=== PATIENT | female | born 1985 | race Caucasian/White ===

== ENCOUNTER 2024-02-25 18:15 | Emergency (ER) | payer OTHER ==
[~2024-02-25] VITALS: Ht 162.6 cm; Wt 95.3 kg
[~2024-02-25 18:15] MED LIST: LEVO50TA PO
[2024-02-25] MEDS: KETOROLAC TROMETHAMINE 30 MG INJ IVP ONE (19:00)
[2024-02-25] MEDS ORDERED: KETOROLAC TROMETHAMINE 30 MG INJ ONE (19:08)
[2024-02-25 19:12] LABS: BASOPHILS # (AUTO) 0.1 K/UL (0.0-0.2); EOSINOPHILS # (AUTO) 0.2 K/uL (0.0-0.7); EOSINOPHILS % (AUTO) 2.8 % (0.0-7.0); HEMATOCRIT 42.3 % (31.2-41.9); HEMOGLOBIN 14.2 g/dL (10.9-14.3); LYMPHOCYTES % (AUTO) 12.3 % (20.5-51.5); MEAN CORPUSCULAR HEMOGLOBIN 28.7 uug (24.7-32.8); MEAN CORPUSCULAR HGB CONC 34 g/dL (32.3-35.6); MEAN CORPUSCULAR VOLUME 85.2 fL (75.5-95.3); MONOCYTES # (AUTO) 0.5 K/uL (0.1-1.30); MONOCYTES % (AUTO) 5.9 % (0.0-11.0); NEUTROPHILS # (AUTO) 6.1 K/uL (1.8-8.9); PLATELET COUNT (AUTO) 308 K/uL (179-408); RED BLOOD CELL COUNT(AUTO) 4.96 MIL/uL (3.63-4.92); RED CELL DISTRIBUTION WIDTH 13.4 % (12.3-17.7); WHITE BLOOD COUNT (AUTO) 7.8 K/uL (3.8-11.8)
[2024-02-25 19:14] LABS: *BILIRUBIN,URIN NEGATIVE (NEGATIVE); *BLOOD, URINE NEGATIVE (NEGATIVE); *CLARITY,URINE CLEAR (CLEAR); *COLOR,URINE YELLOW (YELLOW); *KETONES,URINE NEGATIVE (NEGATIVE); *PROTEIN,URINE NEGATIVE (NEGATIVE); *UROBILINOGEN,URINE 0.2 E.U./dl (NORMAL); LEUKOCYTE ESTERASE ,URINE NEGATIVE (NEGATIVE); NITRITE, URINE NEGATIVE (NEGATIVE); PH,URINE 8.5 (5.0-8.0); UGLUCOSE NEGATIVE (NEGATIVE)
[2024-02-25 19:18] LABS: *URINE HCG, QUAL NEGATIVE (NEGATIVE); DIFFERENTIAL COMMENT 1
[2024-02-25 19:27] LABS: ALANINE AMINOTRANSFERASE 18 U/L (14-59); ALBUMIN 4.2 g/dL (3.4-5.0); ALKALINE PHOSPHATASE 67 U/L (50-136); ASPARTATE AMINOTRANSFERASE < 5 U/L (15-37); BILIRUBIN,TOTAL 0.4 mg/dL (0.2-1.0); CALCIUM 9.4 mg/dL (8.5-10.1); CARBON DIOXIDE 26 mmol/L (21-32); CHLORIDE 104 mmol/L (98-107); CREATININE 0.9 mg/dL (0.6-1.3); GLUCOSE 96 mg/dL (74-106); POTASSIUM 3.6 mmol/L (3.5-5.1); SODIUM SERUM 141 mmol/L (136-145); TOTAL PROTEIN, SERUM 8.6 g/dL (6.4-8.2); UREA NITROGEN, BLOOD 9 mg/dL (7-18)
[2024-02-25 19:34] LABS: THYROID STIMULATING HORMONE 3.473 mIU/mL (0.358-3.740)
[2024-02-25] MEDS ORDERED: MORPHINE SULFATE 2 MG/1 ML DISP.SYRIN ONE (22:20)
[2024-02-25] MEDS ORDERED: CLIN-118 PO (22:29)
[2024-02-25] MEDS: MORPHINE SULFATE 2 MG/1 ML DISP.SYRIN IM ONE (22:30)
[2024-02-25 22:49] VITALS: BP 121/68; TEMP 98; O2SAT 96
== END 2024-02-25 22:35 | disposition home or self-care (01) ==
LOC: ER 18:18
DX: K52.9 Noninfective gastroenteritis and colitis, unspecified (principal); N83.202 Unspecified ovarian cyst, left side; R59.0 Localized enlarged lymph nodes; Z88.8 Allergy status to other drugs, medicaments and biological substances; Z79.2 Long term (current) use of antibiotics; Z79.899 Other long term (current) drug therapy
CPT/HCPCS: 99285; 70450; 96374; 76856; 80053; 81003; 84703; 84443; 85025; 36415; 74176; 76642; 96372; 83605; J1885; J2270; A4606; A4663

== ENCOUNTER 2025-07-02 18:23 | Emergency (ER) | payer OTHER ==
[~2025-07-02] VITALS: Ht 162.6 cm; Wt 95.3 kg
[~2025-07-02 18:23] MED LIST changes: +CLIN-118 PO
[2025-07-02 18:25] VITALS: BP 136/73
[2025-07-02] MEDS ORDERED: diphenhydrAMINE 50 MG/1 ML VIAL ONE (19:10)
[2025-07-02] MEDS: IV NORMAL SALINE 1000 ML BAG IV ONE (19:17)
[2025-07-02] MEDS: diphenhydrAMINE 50 MG/1 ML VIAL IV ONE (19:17)
[2025-07-02 19:22] LABS: PLATELET COUNT (AUTO) 403 K/uL (179-408); RED BLOOD CELL COUNT(AUTO) 4.92 MIL/uL (3.63-4.92); RED CELL DISTRIBUTION WIDTH 13.7 % (12.3-17.7); WHITE BLOOD COUNT (AUTO) 9.6 K/uL (3.8-11.8)
[2025-07-02 19:36] LABS: CREATININE 0.7 mg/dL (0.6-1.3); SODIUM SERUM 140.0 mmol/L (136-145); UREA NITROGEN, BLOOD 8.0 mg/dL (7-18)
[2025-07-02 19:42] LABS: ASPARTATE AMINOTRANSFERASE 16.0 U/L (15-37); TOTAL PROTEIN, SERUM 8.4 g/dL (6.4-8.2)
[2025-07-02] MEDS ORDERED: FAMO20TA8 PO (22:06)
[2025-07-02] MEDS ORDERED: EPIN0.3P3 IM (22:06)
[2025-07-02] MEDS ORDERED: PRED20TA PO (22:06)
[2025-07-02] MEDS ORDERED: DIPH25CA83 PO (22:06)
[2025-07-02 22:44] VITALS: BP 136/73; TEMP 98; O2SAT 100
== END 2025-07-02 23:20 | disposition home or self-care (01) ==
LOC: ER 18:23
DX: T78.40XA Allergy, unspecified, initial encounter (principal); Z79.52 Long term (current) use of systemic steroids; Z79.890 Hormone replacement therapy; Y92.89 Other specified places as the place of occurrence of the external cause
CPT/HCPCS: 99284; 96374; 96361; 96375; 80076; 80048; 85025; 36415; J2919 ×2; J1200; J7040; A4606; A4663